=== PATIENT | male | born 1990 | race Two or more races ===

== ENCOUNTER 2016-09-28 08:20 | Emergency (ER) | payer MEDICAID, OTHER ==
[~2016-09-28] VITALS: Ht 193 cm; Wt 145.5 kg
[~2016-09-28 08:20] MED LIST: TRAM50TA2 PO
[2016-09-28 08:25] VITALS: Ht 193 cm; Wt 145.5 kg
[2016-09-28] MEDS ORDERED: HYDROCODONE/APAP (5/325) TAB PO ONE (09:00)
[2016-09-28] MEDS ORDERED: IBUPROFEN 800 MG TAB PO ONE (09:00)
--- NOTE | 2016-09-28 11:08 | RADRPT ---
PROCEDURE: XR Ribs. CLINICAL INDICATION: Right-sided chest pain TECHNIQUE: 2 oblique views of the right ribs were obtained. The images were reviewed on a PACS wo rkstation. COMPARISON: None. FINDINGS: Ribs: There is no radiographic evidence of right -sided rib fracture. Visualized right lung is tab r. There is no evidence of pneumothorax. IMPRESSION: 1. No radiographic evidence of right sided rib fracture. RPTAT: UU .Ryan Andersen MD, MD Date Time Electronically viewed and signed by .Ryan Andersen MD, MD on 09/28/2016 11:08 .K/
[2016-09-28] MEDS ORDERED: IBUP800T25 PO (11:26)
[2016-09-28] MEDS ORDERED: HYDR-906 PO (11:26)
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
== END 2016-09-28 11:42 | disposition home or self-care (01) ==
LOC: FTE 08:20
DX: S62.001A Unspecified fracture of navicular [scaphoid] bone of right wrist, initial encounter for closed fracture (principal); F17.210 Nicotine dependence, cigarettes, uncomplicated; V18.4XXA Pedal cycle driver injured in noncollision transport accident in traffic accident, initial encounter
CPT/HCPCS: 29125; 71100; 73110; Z7502; Z7610